=== PATIENT | female | born 1990 | race Caucasian/White ===

== ENCOUNTER 2020-05-01 10:57 | Emergency (ER) | payer OTHER, SELFPAY ==
--- NOTE | ~2020-05-01 | US_ITS ---
EXAMINATION: US venous doppler [facility] DATE: 05/01/2020 11:38 INDICATION: Left lower limb pain and swelling. TECHNIQUE: Grayscale ultrasound images without and with compression and Doppler ultrasound images of the left lower extremity veins were obtained. COMPARISON: Ultrasound 06/28/2019 FINDINGS: The visualized portions of left common femoral vein, profunda (deep) femoral vein, femoral vein, popl iteal vein, peroneal veins, posterior tibial veins, and greater saphenous vein outflow are patent. IMPRESSION: 1. No deep venous thrombosis. Reviewed, dictated and finalized at location B.
[2020-05-01 11:04] VITALS: BP 125/75; PULSE 88; RESP 18; TEMP 37.2; O2SAT 100
--- NOTE | 2020-05-01 11:20 | ED.LOWEXIN ---
HPI - Extremity Injury (Lower) General Chief Complaint: Extremity Injury, Lower <Lizabeth Daniel PA-C - Last Filed: 05/01/20 13:02> Stated Complaint: r/o dvt <GHASSAN Briggs Last Filed: 05/01/20 13:02> Time Seen by Provider: 05/01/20 11:10 <Lizabeth Daniel PA-C - Last Filed: 05/01/20 13:02> Source: patient <GHASSAN Briggs Last Filed: 05/01/20 13:02> Mode of arrival: ambulatory <GHASSAN Briggs Last Filed: 05/01/20 13:02> Limitations: no limitations <GHASSAN Briggs Last Filed: 05/01/20 13:02> History of Present Illness HPI Narrative: This is a 29-year-old female that presents the emergency department for left calf pain x1 week. No known injury or trauma. Also reports swelling to the lower extremity. Reports history of DVT so she was concerned she may have another one. Reports she is 13 weeks . Denies fever, chest pain, shortness of breath or erythema. <GHASSAN Briggs Last Filed: 05/01/20 13:02> Related Data Home Medications: Home Medications Medication Instructions Recorded Confirmed No Home Medications 05/01/20 05/01/20 <Lizabeth Daniel PA-C - Last Filed: 05/01/20 13:02> Allergies/Adverse Reactions: Allergies Allergy/AdvReac Type Severity Reaction Status Date / Time Sulfa (Sulfonamide Allergy Unknown HIVES Verified 05/01/20 11:06 Antibiotics) <GHASSAN Briggs Last Filed: 05/01/20 13:02> Review of Systems Review of Systems: Narrative: CONSTITUTIONAL: Denies fever CARDIOVASCULAR: Denies chest pain RESPIRATORY: Denies dyspnea. SKIN: Denies rash <GHASSAN Briggs Last Filed: 05/01/20 13:02> All systems reviewed & are unremarkable except as noted in HPI and below <GHASSAN Briggs Last Filed: 05/01/20 13:02> PMFSH Past Medical History Medical History: Medical History (Updated 05/01/20 @ 13:01 by Lizabeth Daniel PA-C) Asthma History of DVT (deep vein thrombosis) Hx of endometriosis Hx of multiple sclerosis <Lziabeth Daniel PA-C - Last Filed: 05/01/20 13:02> Social History Social History: Social History Gender identity (if verbalized by the patient): Female <Lizabeth Daniel PA-C - Last Filed: 05/01/20 13:02> Exam Narrative: Exam Narrative: GENERAL: Well-appearing, well-nourished, and in no acute distress. HEAD: Normocephalic, atraumatic. EYES: EOMI. CHEST: Clear to auscultation. No respiratory distress. No wheezes rales or rhonchi HEART: Regular rate and rhythm. No murmur heard. Normal peripheral pulses. EXTREMITIES: Normal range of motion. No edema or erythema. Normal DP pulses SKIN: Warm, dry, no rash. NEURO: No focal deficits. Alert and oriented x3. PSYCH: Normal mood and affect <Lizabeth Daniel PA-C - Last Filed: 05/01/20 13:02> Course Consultations Consultation #1: I spoke with her OB stone driller, Dr Mejia about work-up who will follow-up in clinic as scheduled. <Lizabeth Daniel PA-C - Last Filed: 05/01/20 13:02> Date: 05/01/20 <Lizabeth Daniel PA-C - Last Filed: 05/01/20 13:02> Time: 13:00 <iLzabeth Daniel PA-C - Last Filed: 05/01/20 13:02> Vital Signs Vital signs: Vital Signs Temperature 98.9 F 05/01/20 11:04 Pulse Rate 88 05/01/20 11:04 Respiratory Rate 18 05/01/20 11:04 Blood Pressure 125/75 05/01/20 11:04 Pulse Oximetry 100 05/01/20 11:04 Temperature 98.9 F 05/01/20 11:04 Pulse Rate 80 05/01/20 13:32 Respiratory Rate 20 05/01/20 13:32 Blood Pressure 118/74 05/01/20 13:32 Pulse Oximetry 98 05/01/20 13:32 <Lizabeth Daniel PA-C - Last Filed: 05/01/20 13:02> Vital Signs Temperature 98.9 F 05/01/20 11:04 Pulse Rate 88 05/01/20 11:04 Respiratory Rate 18 05/01/20 11:04 Blood Pressure 125/75 05/01/20 11:04 Pulse Oximetry 100 05/01/20 11:04 Temperature 98.9 F 05/01/20 11:04
[2020-05-01 12:07] LABS: Basophils Percent Auto 0.2 % (0.2-1.2); Eosinophils Absolute Auto 0.1 K/mm3 (0-0.3); Hematocrit 35.1 % (37.0-47.0); Hemoglobin 11.8 g/dL (12.0-15.0); Immature Granulocyte Absolute 0.05 K/mm3 (0.00-0.031); Immature Granulocyte Percent A 0.5 % (0-0.5); Lymphocytes Absolute Auto 1.21 K/mm3 (0.9-3.2); Lymphocytes Percent Auto 11.4 % (18.3-44.2); Mean Corpuscular HGB Conc 33.6 g/dl (32-36); Mean Corpuscular Hemoglobin 28.5 pg (26-34); Mean Corpuscular Volume 84.8 fl (80-100); Mean Platelet Volume 9.2 fl (7.4-10.4); Monocytes Absolute Auto 0.6 K/mm3 (0.1-0.6); Monocytes Percent Auto 5.7 % (2.6-8.5); Neutrophils Absolute Auto 8.6 K/mm3 (1.3-6.7); Neutrophils Percent Auto 81.2 % (45.5-73.1); Platelet Count Result 253 k/mm3 (150-375); Red Blood Count 4.14 M/mm3 (4.2-5.4); Red Cell Distribution Width 13.4 % (11.5-14.5); White Blood Count 10.6 K/mm3 (4.5-10.0)
[2020-05-01 12:16] LABS: Prothrombin Time 13.1 Seconds (11.1-14.7)
[2020-05-01 12:17] LABS: Partial Thromboplastin Time 22.8 SECONDS (22.3-36.8)
[2020-05-01 12:22] LABS: Potassium 3.9 mmol/L (3.4-5.0)
[2020-05-01 12:47] LABS: Anion Gap 6 mmol/L (8-16); Blood Urea Nitrogen 8 mg/dL (7-17); Calcium 8.9 mg/dL (8.4-10.2); Carbon Dioxide 28 mmol/L (22-30); Chloride 104 mmol/L (98-107); Estimated CRCL calculation 119 ml/min; Estimated Glomerular Filt Rate > 60; Glucose 94 mg/dL (65-105); Sodium 138 mmol/L (137-145)
[2020-05-01 13:32] VITALS: BP 118/74; PULSE 80; RESP 20; O2SAT 98
== END 2020-05-01 13:33 | disposition home or self-care (01) ==
PROVIDERS: Physician Assistant; Emergency Provider General Practice; PCP Family Medicine
DX: O26.891 Other specified pregnancy related conditions, first trimester (principal); M79.662 Pain in left lower leg; O99.511 Diseases of the respiratory system complicating pregnancy, first trimester; J45.909 Unspecified asthma, uncomplicated; Z86.718 Personal history of other venous thrombosis and embolism; O99.351 Diseases of the nervous system complicating pregnancy, first trimester; G35 Multiple sclerosis; O99.891 Other specified diseases and conditions complicating pregnancy; N80.9 Endometriosis, unspecified; Z3A.13 13 weeks gestation of pregnancy
CPT/HCPCS: 36415; 80048; 85025; 85610; 85730; 93971; 99284

== ENCOUNTER 2020-05-22 20:53 | Emergency (ER) | payer OTHER, SELFPAY ==
--- NOTE | ~2020-05-22 | XR_ITS ---
XR ankle RT min 3V 05/22/2020 21:33 INDICATION: Right ankle pain PROCEDURE: 4 views right ankle COMPARISON: No prior studies for comparison. FINDINGS: Fracture, dislocation or subluxation is not identified. The soft tissues appear within norm al limits. No foreign bodies are identified. IMPRESSION: 1: NO ACUTE BONE OR JOINT ABNORMALITY IDENTIFIED. Reviewed, dictated and finalized at location A.
[2020-05-22 20:58] VITALS: BP 123/79; PULSE 93; RESP 16; TEMP 36.2; O2SAT 100
--- NOTE | 2020-05-22 22:51 | ED.LOWEXIN ---
HPI - Extremity Injury (Lower) General Chief Complaint: Extremity Injury, Lower Stated Complaint: right foot injury Time Seen by Provider: 05/22/20 22:01 Source: patient Mode of arrival: ambulatory Limitations: no limitations History of Present Illness HPI Narrative: 30-year-old female Complains of twisting her right ankle while walking this evening Has pain making ambulation difficult, and mild lateral swelling She is and on daily Lovenox shots No other injuries, no cramping no spotting Related Data Home Medications Medication Instructions Recorded Confirmed No Home Medications 05/01/20 05/01/20 Allergies Allergy/AdvReac Type Severity Reaction Status Date / Time Sulfa (Sulfonamide Allergy Unknown HIVES Verified 05/01/20 11:06 Antibiotics) Review of Systems Genitourinary: Genitourinary: Denies abnormal vaginal bleeding Musculoskeletal: Musculoskeletal: Reports arthralgias and Reports joint swelling PMFSH Past Medical History Medical History (Updated 05/22/20 @ 23:00 by Koby Taylor MD) Asthma History of DVT (deep vein thrombosis) Hx of endometriosis Hx of multiple sclerosis Social History Social History Gender identity (if verbalized by the patient): Female Exam Const: General: no acute distress and alert Orientation/consciousness: patient oriented x3 Eyes: Conjunctivae: conjunctivae normal EOM: EOMs intact bilaterally Skin: General skin exam: normal color Neuro: General: patient oriented x3 Speech: normal speech Extrem: Other: Lateral tenderness and mild soft tissue swelling, no laxity, neurovascular intact Course Vital Signs Vital signs: Vital Signs Temperature 36.2 C L 05/22/20 20:58 Pulse Rate 93 05/22/20 20:58 Respiratory Rate 16 05/22/20 20:58 Blood Pressure 123/79 05/22/20 20:58 Pulse Oximetry 100 05/22/20 20:58 Temperature 36.2 C L 05/22/20 20:58 Pulse Rate 93 05/22/20 20:58 Respiratory Rate 16 05/22/20 20:58 Blood Pressure 123/79 05/22/20 20:58 Pulse Oximetry 100 05/22/20 20:58 Discharge Plan Discharge Clinical Impression: Ankle sprain and strain Patient Disposition: Home, Self-Care Condition: Stable Instructions: Ankle Sprain (ED), Ankle Stirrup Splint (ED), Crutch Instructions (ED) Additional Instructions: Tylenol for pain, elevate, ice, crutches can be borrowed from [facility] if needed Prescriptions: No Action No Home Medications RF: 0 Follow-up/Referrals: Jj Coats MD [Primary Care Provider] - (If needed)
[2020-05-23] VITALS: BP 134/86; PULSE 78; RESP 20; TEMP 36.4; O2SAT 100
== END 2020-05-22 23:50 | disposition home or self-care (01) ==
PROVIDERS: Emergency Provider Emergency Medicine; PCP Family Medicine
DX: O9A.212 Injury, poisoning and certain other consequences of external causes complicating pregnancy, second trimester (principal); S93.401A Sprain of unspecified ligament of right ankle, initial encounter; S96.911A Strain of unspecified muscle and tendon at ankle and foot level, right foot, initial encounter; O99.352 Diseases of the nervous system complicating pregnancy, second trimester; G35 Multiple sclerosis; O99.512 Diseases of the respiratory system complicating pregnancy, second trimester; J45.909 Unspecified asthma, uncomplicated; Z86.718 Personal history of other venous thrombosis and embolism; Z3A.16 16 weeks gestation of pregnancy; Z79.02 Long term (current) use of antithrombotics/antiplatelets; X50.1XXA Overexertion from prolonged static or awkward postures, initial encounter
CPT/HCPCS: 73610; 99283

== ENCOUNTER → 2020-09-15 12:28 | Outpatient (CLI) | payer OTHER, SELFPAY ==
--- NOTE | ~2020-09-15 | US_ITS ---
EXAMINATION: US OB follow up DATE: 09/15/2020 12:49 INDICATION: Small for gestational age. TECHNIQUE: Real-time ultrasound of the pelvis was performed. COMPARISON: None. FINDINGS: There is a single living fetus in vertex presentation. The placenta is posterior and fundal. h eart rate is 132 beats per minute (bpm). The amniotic fluid index is 20.8 cm, which is normal. The following biometric data were obtained: Biparietal diameter (BPD): 7.9 cm; head circumference (HC): 29.0 cm; abdominal circumference (AC): 27 .8 cm; femur length (FL): 5.8 cm. These measurements are concordant. Estimated weight is 1768 g +/- 265 g, which correlates with 6th percentile when 11/02/20 is used as estimated date of delivery. As single measurements, these parameters are each equal to the following estimated gestational ages w ith ranges of +/- 2 standard deviations: BPD: 31 weeks 6 days (28 weeks 6 days - 35 weeks 0 days). HC: 32 weeks 0 days (29 weeks 0 days - 35 weeks 0 days). AC: 31 weeks 6 days (28 weeks 6 days - 34 weeks 6 days). FL: 30 weeks 3 days (27 weeks 3 days - 33 weeks 3 days). estimated gestational age based solely on measurements from this exam is 31 weeks 4 days +/- 2 weeks 1 days. IMPRESSION: 1. Single living fetus in vertex presentation. 2. Small for gestational age. Estimated weight is 1768 g +/- 265 g, which correlates with 6th percentile when 11/02/20 is used as estimated date of delivery. Reviewed, dictated and finalized at location A. [facility] [employer] IMPRESSION: 1. Single living fetus in vertex presentation. 2. Small for gestational age. Estimated weight is 1768 g +/- 265 g, whic h correlates with 6th percentile when 11/02/20 is used as estimated date of deli very.
== END ==
PROVIDERS: Visit Provider Obstetrics & Gynecology
DX: Z36.9 Encounter for antenatal screening, unspecified (principal); Z3A.31 31 weeks gestation of pregnancy
CPT/HCPCS: 76816

== ENCOUNTER 2020-11-02 17:06 | Inpatient (IN) | payer OTHER, SELFPAY ==
[2020-11-02] VITALS (11 sets, daily range): BP systolic 91–104; BP diastolic 49–77; PULSE 81–108; RESP 18; TEMP 36.3–36.6; BMI 36.6
--- NOTE | 2020-11-02 17:06 | LDADM ---
This patient, Bushra Waite, was admitted to Labor/Delivery/Recovery 107 on 11/02/20 at 17:06. Plans for labor, pain management and were discussed with patient. Patient/family oriented to hospital policies and general routines including ID bracelet, bed and alarms, visiting hours, pain management, procedures, bathroom and other care routines, personal items, smoking policy, room service/diet and guest tray routines, security routines, and visiting hours. Patient/Family are encouraged to report perceived risks to care and to ask questions if they do not understand what they are told or what they should do. See OBIX for further documentation.
[2020-11-02 18:01] LABS: Basophils Percent Auto 0.2 % (0.2-1.2); Eosinophils Absolute Auto 0.1 K/mm3 (0-0.3); Eosinophils Percent Auto 0.5 % (0-4.4); Hematocrit 31.3 % (37.0-47.0); Hemoglobin 9.9 g/dL (12.0-15.0); Immature Granulocyte Absolute 0.06 K/mm3 (0.00-0.031); Immature Granulocyte Percent A 0.6 % (0-0.5); Lymphocytes Absolute Auto 1.29 K/mm3 (0.9-3.2); Lymphocytes Percent Auto 11.9 % (18.3-44.2); Mean Corpuscular HGB Conc 31.6 g/dl (32-36); Mean Corpuscular Hemoglobin 25.3 pg (26-34); Mean Corpuscular Volume 79.8 fl (80-100); Mean Platelet Volume 10.5 fl (7.4-10.4); Monocytes Absolute Auto 0.8 K/mm3 (0.1-0.6); Monocytes Percent Auto 6.9 % (2.6-8.5); Neutrophils Absolute Auto 8.7 K/mm3 (1.3-6.7); Neutrophils Percent Auto 79.9 % (45.5-73.1); Platelet Count Result 250 k/mm3 (150-375); Red Blood Count 3.92 M/mm3 (4.2-5.4); Red Cell Distribution Width 15.3 % (11.5-14.5); White Blood Count 10.9 K/mm3 (4.5-10.0)
[2020-11-02] MEDS: DINOPROSTONE 10 MG VAG INSERT VAGINAL (18:03)
[2020-11-02 18:52] LABS: HIV 1/2 Ab P24 Ag Result Negative (Negative)
[2020-11-02 19:25] LABS: INR 0.9; Prothrombin Time 13.1 Seconds (11.1-14.7)
[2020-11-02 19:26] LABS: Partial Thromboplastin Time 24.7 SECONDS (22.3-36.8)
[2020-11-03] VITALS (62 sets, daily range): BP systolic 41–122; BP diastolic 15–92; PULSE 64–204; RESP 16–18; TEMP 36.1–36.8; O2SAT 83–100
[2020-11-03] MEDS: LACTATED RINGERS 1,000 ML 125 ML IV CONT ×2 (05:12→07:16)
[2020-11-03] MEDS: OXYTOCIN 30 UNITS/NS 500 ML 30 UNITS/500 ML BAG IV CONT (05:13)
--- NOTE | 2020-11-03 06:44 | WPDANESEPPF ---
Anes - Initial Pre Proc Eval Procedure: labor epidural Date/Time: 11/03/20 06:44 Surgeon: Kervin Obrien MD Pre Op Diagnosis: labor pain Pre Op Diagnosis: Induction of Labor Patient Data Age: 30 Gender: F Height: 1.57 m Weight: 91 kg Last Vital Signs Temp 36.1 C L 11/03/20 04:01 Pulse 89 11/03/20 06:42 Resp 16 11/03/20 04:01 BP 110/71 11/03/20 06:42 Pulse Ox 99 11/03/20 06:43 Allergies Allergy/AdvReac Type Severity Reaction Status Date / Time Sulfa (Sulfonamide Allergy Unknown HIVES Verified 11/02/20 17:26 Antibiotics) Home Medications Medication Instructions Recorded Confirmed Type prenat.vits,jorge,[id number] 1 tablet PO DAILY 10/12/20 11/02/20 History [ #2] heparin (porcine) 10 unit SUBCUT BID 11/02/20 11/02/20 History Laboratory Tests 11/02/20 11/02/20 11/02/20 17:52 17:52 17:52 WBC 10.9 K/mm3 H K/mm3 (4.5-10.0) RBC 3.92 M/mm3 L M/mm3 (4.2-5.4) Hgb 9.9 g/dL L g/dL (12.0-15.0) Hct 31.3 % L % (37.0-47.0) MCV 79.8 fl L fl (80-100) MCH 25.3 pg L pg (26-34) MCHC 31.6 g/dl L g/dl (32-36) RDW 15.3 % H % (11.5-14.5) Plt Count 250 k/mm3 k/mm3 (150-375) MPV 10.5 fl H fl (7.4-10.4) Immature Gran % (Auto) 0.6 % H % (0-0.5) Neut % (Auto) 79.9 % H % (45.5-73.1) Lymph % (Auto) 11.9 % L % (18.3-44.2) Curry % (Auto) 6.9 % % (2.6-8.5) Eos % (Auto) 0.5 % % (0-4.4) Baso % (Auto) 0.2 % % (0.2-1.2) Lymph # (Auto) 1.29 K/mm3 K/mm3 (0.9-3.2) Curry # (Auto) 0.8 K/mm3 H K/mm3 (0.1-0.6) Eos # (Auto) 0.1 K/mm3 K/mm3 (0-0.3) Baso # (Auto) 0.0 K/mm3 K/mm3 (0.0-0.1) Abs Immat Gran (auto) 0.06 K/mm3 H K/mm3 (0.00-0.031) Absolute Neuts (auto) 8.7 K/mm3 H K/mm3 (1.3-6.7) Absolute Nucleated RBC 0.0 K/mm3 K/mm3 (0.0-0.012) Nucleated RBC % 0.0 % % (0.0-0.2) PT INR APTT RPR Pending HIV 1&2 Ab/P24 Ag 4thGn Negative (Negative) Blood Type Antibody Screen 11/02/20 11/02/20 17:52 19:00 WBC RBC Hgb Hct MCV MCH MCHC RDW Plt Count MPV Immature Gran % (Auto) Neut % (Auto) Lymph % (Auto) Curry % (Auto) Eos % (Auto) Baso % (Auto) Lymph # (Auto) Curry # (Auto) Eos # (Auto) Baso # (Auto) Abs Immat Gran (auto) Absolute Neuts (auto) Absolute Nucleated RBC Nucleated RBC % PT 13.1 Seconds Seconds (11.1-14.7) INR 0.9 APTT 24.7 SECONDS SECONDS (22.3-36.8) RPR HIV 1&2 Ab/P24 Ag 4thGn Blood Type B Positive Antibody Screen Negative Patient hx anesthesia problems: none Family hx anesthesia problems: none [facility] Past Medical History Medical History (Updated 05/24/20 @ 00:00 by Morgan Edward) Asthma History of DVT (deep vein thrombosis) Hx of endometriosis Hx of multiple sclerosis Family History Family History (Updated 10/12/20 @ 14:48 by Darlin Rizo RN) Mother Multiple sclerosis Grandparent Diabetes mellitus History of blood clots Social History Social History Smoking status: Never smoker Substance use: never Gender identity (if verbalized by the patient): Female Spiritual care concerns: No Anes - Eval Final PreProcedure Day of Procedure 11/03/20 06:44 Patient weight: obese ASA classification: III Anesthesia type and monitoring: regional epidural Informed Consent: The patient's anesthetic plan and its attendant risks and benefits were discussed with the pat
[2020-11-03 06:45] LABS: Rapid Plasma Reagin Non-Reactive (NonReactive)
--- NOTE | 2020-11-03 07:00 | WPDOBADMIT ---
Obstetrics - Admit Note Admission Note: record reviewed. Additions to the history and/or subsequent changes in the physical findings follow. 30 y/o at 39 3/7 weeks here for induction of labor. Has thrombophilia and has been on anticoagulation throughout . Switched from Lovenox to heparin at 36 weeks. Last dose the day prior to admission. Cervidil overnight, has been withdrawn and oxytocin has been begun. AVSS NST reactive TOCO: contractions every 2-3 min ABD soft, nontender, gravid, vertex Cervix 3 cm at time of Cervidil withdrawal. EXT nontender A: IUP at term, here for induction of labor. Thrombophilia. P: Oxytocin. Anticipate .
--- NOTE | 2020-11-03 07:50 | PM.OBPRVD ---
OB - Delivery Note Procedure Delivery date: 11/03/20 Procedure: Patient pushed for a spontaneous vaginal delivery. The fetus was delivered atraumatically and placed on the maternal abdomen. The cord was clamped and cut after 1 minute of life. The cord was double clamped and cut and a segment of cord was collected for cord gases. Cord blood was collected for blood type and Coomb's testing. The placenta delivered spontaneously and was noted to be intact. The perineum was inspected and there were no lacerations noted. The uterus was firm and good hemostasis was noted. The patient and fetus were stable in the delivery room. Intrapartal events: None Induction method: per cervidil protocol Delivery monitor: external FHT Route of delivery: Episiotomy description: None Laceration Description: None Specimen: No Quantitative Blood Loss (ml): 250 Disposition: floor () Complications: No immediate complications Baby Date of : 11/03/20 Time of : 07:42 Weeks of gestation at delivery: 39 Infant gender: Female Weight (pounds): 7 Weight (ounces): 5 presentation: vertex position: Right Occiput Anterior Placenta delivery description: Spontaneous cord vessel description: 3 Vessels score one minute: 9 score five minutes: 9
[2020-11-03] MEDS: OXYTOCIN 30 UNITS/NS 500 ML 30 UNITS/500 ML BAG 125 UNITS IV CONT (08:20)
[2020-11-03] MEDS: WITCH HAZEL 40 PADS 1 PAD TOPICAL (10:04)
[2020-11-03] MEDS: BENZOCAINE 20% AER SPR (*SP) 56 GM CAN 1 SPRAY TOPICAL (10:04)
[2020-11-03] MEDS: IBUPROFEN 600 MG TABLET PO ×2 (10:04→16:48)
[2020-11-03] MEDS: ONDANSETRON INJ 4 MG/2 ML VIAL IV PUSH (10:35)
--- NOTE | 2020-11-03 13:40 | PC.NURSE ---
Patient transferred to post room #278 per wheelchair from labor and delivery. Support person present. Oriented to unit, room, information board, rooming in, admission packet and security measures. Patient verbalizes understanding.
[2020-11-03] MEDS: POLYSACCHARIDE IRON COMPLEX 150 MG CAPSULE PO (16:48)
[2020-11-03] MEDS: DOCUSATE SODIUM 100 MG CAPSULE PO (16:48)
[2020-11-04] VITALS (7 sets, daily range): BP systolic 99–110; BP diastolic 63–74; PULSE 72–88; RESP 14–16; TEMP 36.3–36.6; O2SAT 94–100
[2020-11-04] MEDS: IBUPROFEN 600 MG TABLET PO ×2 (05:05→13:26)
[2020-11-04 05:46] LABS: Hematocrit 29.4 % (37.0-47.0); Hemoglobin 9.2 g/dL (12.0-15.0)
--- NOTE | 2020-11-04 06:35 | PC.NURSE ---
Pt to pre-op for tubal ligation. Infant in nursery, mother ok if is supplemented while she is away.
[2020-11-04] MEDS: LACTATED RINGERS 1,000 ML 30 ML IV CONT (06:45)
--- NOTE | 2020-11-04 06:46 | WPDANESEPPF ---
Anes - Initial Pre Proc Eval Procedure: Operation Date: 11/04/20 07:30 Proposed Procedures p Post- Tubal Ligation - Kervin Obrien MD Date/Time: 11/04/20 06:46 Surgeon: Kervin Obrien MD Pre Op Diagnosis: Induction of Labor Patient Data Age: 30 Gender: F Height: 5 ft 2 in Weight: 91 kg Last Vital Signs Temp 36.6 C 11/04/20 05:00 Pulse 72 11/04/20 05:00 Resp 16 11/04/20 05:00 BP 110/74 11/04/20 05:00 Pulse Ox 98 11/03/20 13:40 Allergies Allergy/AdvReac Type Severity Reaction Status Date / Time Sulfa (Sulfonamide Allergy Unknown HIVES Verified 11/02/20 17:26 Antibiotics) Home Medications Medication Instructions Recorded Confirmed Type prenat.vits,jorge,[id number] 1 tablet PO DAILY 10/12/20 11/02/20 History [ #2] heparin (porcine) 10 unit SUBCUT BID 11/02/20 11/02/20 History Laboratory Tests 11/04/20 05:15 Hgb 9.2 g/dL L g/dL (12.0-15.0) Hct 29.4 % L % (37.0-47.0) Patient hx anesthesia problems: none Family hx anesthesia problems: none PMFSH Past Medical History Medical History Asthma History of DVT (deep vein thrombosis) Hx of endometriosis Hx of multiple sclerosis Surgical History Surgical History (Updated 11/04/20 @ 06:47 by Nazario Roman MD) H/O laparoscopy Family History Family History Mother Multiple sclerosis Grandparent Diabetes mellitus History of blood clots Social History Social History Smoking status: Never smoker Substance use: never Gender identity (if verbalized by the patient): Female Spiritual care concerns: No Anes - Eval Final PreProcedure Day of Procedure 11/04/20 06:46 Patient weight: obese Heart: regular rate and rhythm Lungs: clear to auscultation Airway: Mallampati scale class II Neurological: alert and oriented Last oral intake: >/= 8 hours ASA classification: II Emergent: no Anesthetic plan: proceed Anesthesia type and monitoring: general ETT and standard monitoring Other findings: epidural catheter tip out of body when tape removed to examine Informed Consent: The patient's anesthetic plan and its attendant risks and benefits were discussed with the patient/family/POA. Questions were solicited and answers provided to the satisfaction of the patient/family/POA.
--- NOTE | 2020-11-04 07:28 | PM.OBPNVD ---
OB - PN: Subj Subjective Date/time seen: 11/04/20 07:28 Narrative: Pain OK. Would still like pp tubal ligation. Also hopes to go home today. OB - PN: Obj Data Labs CBC & Chem 7: 11/04/20 05:15 Labs: Laboratory Results - last 24 hr 11/04/20 05:15 Hgb 9.2 L Hct 29.4 L OB - PN A/P Plan Comments: A: PPD#1, doing well. Thrombophilia. Wants tubal ligation. P: She understands there are temporary methods of contraception available to her. She understands that there are nonsurgical options as well as surgical options. She understands that tubal ligation will render her permanently sterile. She understands that there is a failure rate associated with tubal ligation, as well as an inherent ectopic gestation risk. Furthermore, she understands risks of surgery to include risks of anesthesia, risks of pain, infection, bleeding, blood products, thromboembolic phenomena and damage to adjacent structures such as bowel, bladder, ureters, blood vessels and nerves. She understands all these risks and elects to proceed with surgery. She has received the [employer] pamphlet on surgical sterilization. Plan to send her home this afternoon to f/u with me 6 weeks. Resume Lovenox and continue for 6 weeks pp. Exam Psych: Other: AVSS ABD soft, nontender, fundus firm EXT nontender
--- NOTE | 2020-11-04 07:30 | WPDHPUPDATE1 ---
History and Physical Update Update Date/Time: 11/04/20 07:30 History and Physical has been reviewed, including an updated exam of the patient. There are NO changes in the patient's condition. Risks, benefits, and alternatives have been discussed and questions answered. Patient agrees to proceed with procedure.
--- NOTE | 2020-11-04 07:31 | PM.IMHP ---
H&P: HPI History of Present Illness Date/Time: 11/04/20 07:31 30 y/o who had a vaginal delivery yesterday morning. Desires permanent contraception. Also has a h/o DVT and has taken Lovenox throughout , transitioned to heparin in the last month of . Last dose of heparin was the day before induction of labor. Chief Complaint: Have tubes tied Review of Systems Review of Systems: All systems reviewed & are unremarkable except as noted in HPI and below PMFSH Past Medical History Medical History Asthma History of DVT (deep vein thrombosis) Hx of endometriosis Hx of multiple sclerosis Surgical History Surgical History H/O laparoscopy Family History Family History Mother Multiple sclerosis Grandparent Diabetes mellitus History of blood clots Social History Social History Smoking status: Never smoker Substance use: never Gender identity (if verbalized by the patient): Female Spiritual care concerns: No Meds Home Medications and Allergies Home Medications Medication Instructions Recorded Confirmed Type prenat.vits,jorge,[id number] 1 tablet PO DAILY 10/12/20 11/02/20 History [ #2] heparin (porcine) 10 unit SUBCUT BID 11/02/20 11/02/20 History Allergies Allergy/AdvReac Type Severity Reaction Status Date / Time Sulfa (Sulfonamide Allergy Unknown HIVES Verified 11/02/20 17:26 Antibiotics) Vital Signs Vital Signs - 24 hr 11/03/20 07:34 11/03/20 07:39 11/03/20 07:55 Temperature 36.6 C Pulse Rate Respiratory Rate Blood Pressure Pulse Oximetry 100 100 11/03/20 08:01 11/03/20 08:15 11/03/20 08:31 Temperature Pulse Rate 204 H 128 H 82 Respiratory Rate Blood Pressure 99/60 L 97/62 L 62/18 L Pulse Oximetry 11/03/20 08:36 11/03/20 08:45 11/03/20 09:00 Temperature Pulse Rate 70 72 64 Respiratory Rate Blood Pressure 99/67 L 95/53 L 103/63 Pulse Oximetry 11/03/20 09:15 11/03/20 09:30 11/03/20 09:45 Temperature Pulse Rate 66 85 68 Respiratory Rate Blood Pressure 103/68 92/72 L 114/73 Pulse Oximetry 11/03/20 10:00 11/03/20 13:40 11/03/20 16:45 Temperature 36.8 C 36.7 C Pulse Rate 72 66 78 Respiratory Rate 16 18 Blood Pressure 118/72 92/60 L 104/59 L Pulse Oximetry 98 11/03/20 20:00 11/04/20 05:00 Temperature 36.7 C 36.6 C Pulse Rate 108 H 72 Respiratory Rate 16 16 Blood Pressure 108/71 110/74 Pulse Oximetry Exam Const: Orientation/consciousness: patient oriented x3 Other: Well-developed, well-nourished female in no acute distress. Neck: Thyroid: thyroid normal Lymphatic: no lymphadenopathy noted (in neck, axilla or inguinal nodes) Resp: Effort & Inspection: normal respiratory effort Auscultation: clear to auscultation bilaterally Cardio: Rate: regular rate Rhythm: regular rhythm Heart sounds: S1 normal heart sound present and S2 normal heart sound present GI: Other: ABD: Soft, nontender, nondistended, fundus firm at umbilicus. No guarding or rebound tenderness. No hepatosplenomegaly. : General: Yes no CVA tenderness Other: Deferred. Back/Spine/Pelvis: Back: no CVA tenderness Skin: General skin exam: normal color and no rashes or lesions noted Neuro: General: patient oriented x3 Extrem: Other: Extremities: nontender with no edema Psych: Mental Status: mental status grossly normal Affect: normal affect H&P: Results Labs Labs: Short CBC 11/04/20 Range/Units 05:15 Hgb 9.2 L (12.0-15.0) g/dL Hct 29.4 L (37.0-47.0) % Assessment and Plan Assessment and plan (1) Unwanted fertility: Code(s): Z30.09 - Encounter for other general counseling and advice on contraception Status: Acute Additional Plan
--- NOTE | 2020-11-04 07:38 | PM.OBDSVD ---
DS: Admitting Diagnosis Admitting Diagnosis Admitting Diagnosis: IUP at 39 3/7 weeks Thrombophilia Desired sterility DS: Discharge Diagnosis Discharge Diagnosis (1) Unwanted fertility: Code(s): Z30.09 - Encounter for other general counseling and advice on contraception Status: Acute (2) (normal spontaneous vaginal delivery): Code(s): O80 - Encounter for full-term uncomplicated delivery Status: Acute (3) Thrombophilia: Code(s): D68.59 - Other primary thrombophilia Status: Acute OB - DS: Summary OB Procedures : None OB Procedures Intrapartum: Spontaneous Vag Delivery OB Procedures: : P.P. tubal ligation and Rubella lg Peripartum Data Procedures: Procedures Operation Date: 11/04/20 07:30 <No data on this case meets the specified criteria> Induction of labor with bilateral tubal ligation via modified [place] technique DS: Data Data Completed and Pending Labs on day of discharge: Labs from last 24 hours 11/04/20 05:15 Hgb 9.2 L Hct 29.4 L Discharge Plan Discharge Attending physician on discharge: Kervin Obrien Discharging Clinician: Kervin Obrien Patient Disposition: Home, Self-Care Activity: may shower, may drive after 2 weeks and pelvic rest Diet: regular Wound Care Instructions: incision open to air Discharge Instructions: Call or return if temperature above 100.4? F, increased abdominal pain, increased vaginal bleeding or any new problems. Education: Mom and Baby Guide and Preeclampsia Handout Given to: Mother Follow-Up: Call your delivering provider's office for an appointment to be seen in: 1 Week Mom and baby should come to the [facility] for the follow-up appointment. Appointment Date/Time: November 06, 2020 at 9:00 am What to expect at your follow-up visit: Physical Assessment Call [phone] if you are unable to keep your appointment time. BREAST CARE: * Wear a snug supportive bra. * For engorgement discomfort: Breast Feeding: * Apply warm moist washcloths * Express milk as needed to relieve engorgement * Wear loose clothing * For sore nipples: * Identify correct latch-on * Apply warm moist washcloths before and after nursing * Air dry nipples after nursing * May apply Lansinoh cream to nipples ABDOMINAL INCISION: (if applicable) * Allow incision to air dry * Do NOT use lotions for powders on your incision * When showering, allow soap and water to run over the incision, but do not wash incision EPISIOTOMY/PERINEAL CARE: * Until bleeding stops, use your jena bottle after urinating * Change your pad frequently throughout the day * You may take sitz baths several times a day (fill your bathtub with warm water and soak for 20 minutes.) Do NOT bathe in the water * No tub baths until seen by your physician - You may shower ACTIVITY: * Rest as much as possible. * Do not exercise or lift anything heavier than your baby (such as laundry or other children.) * Avoid stairs or driving as much as possible. * Do not put anything into the vagina. No douching, tampons, or sexual activity until seen by physician. NOTIFY PHYSICIAN IF YOU HAVE ANY QUESTIONS OR IF ANY OF THE FOLLOWING SYMPTOMS OCCUR: * If your incision becomes red, swollen, or more painful than what you have experienced in the hospital. * If your vaginal bleeding becomes foul smelling. * If your vaginal bleeding becomes more heavy than a period or if your bleeding changes from pink to bright red. However, you may pass an occasional walnut-sized clot once or twice for the first week . * If you experience a sharp, shooting pain in you calves. * If you discover a hard, reddened area on your breast or if you experience flu-like symptoms. DIET: * Eat regular, well-balanced meals. * Drink plenty of fluids daily. If breas
[2020-11-04] MEDS: LIDO 1%/EPINEPHRINE 1:100,000 50 ML VIAL 10 ML INFILTRATE (07:55)
--- NOTE | 2020-11-04 08:10 | P.OP_ITS ---
Procedure Note - Detailed Date of procedure: 11/04/20 Pre-op diagnosis: Induction of Labor Desired sterility Post-op diagnosis: same Procedure performed: bilateral tubal ligation via modified [place] technique Description of procedure: The patient was taken to the operating room where general endotracheal anesthesia was administered. She was prepared and draped in the usual sterile fashion in the dorsal supine position. Ten mL of 1% lidocaine was infiltrated along the planned incision site. An infraumbilical skin incision made with a scalpel. It was carried through to the underlying layer of the fascia. The fascia was incised in the midline. The incision was extended laterally. The peritoneum was identified, tented up and entered sharply and this incision was also extended laterally. The right fallopian tube was grasped with a [place] clamp. It was followed out to the fimbriated end for identification, then was regrasped in the midportion. A loop of tube was ligated with a free tie of 0 plain gut. The tubal segment was sharply transected and passed off to be sent to pathology. The left fallopian tube was similarly identified ligated and transected. Hemostasis was excellent. The fascial layer was reapproximated using 0 Vicryl in a running fashion. The skin incision was reapproximated using 4 0 Monocryl in running subcuticular fashion. Dermaflex was applied externally. Sponge, lap, needle and instrument counts were correct. The patient was awakened and taken to the recovery room in stable condition. I was present and scrubbed through the entire procedure. Implants: None Anesthesia: GETA and local (1% lidocaine) Surgeon: Kervin Obrien MD Estimated blood loss (mL): 5 Drains: No Packing: No Pathology: yes (segments of bilateral Fallopian tubes) Complications: None Condition: stable Disposition: PACU Findings: Normal-appearing Fallopian tubes
[2020-11-04] MEDS: HYDROmorphone HCL INJ (*CRX) 1 MG/ML SYR 0.5 MG IV PUSH ×2 (08:24→08:33)
[2020-11-04] MEDS: diphenhydrAMINE HCl INJ 50 MG/ML VIAL 25 MG IV PUSH (08:45)
--- NOTE | 2020-11-04 10:00 | PC.NURSE ---
Patient was given the opportunity to view the discharge video Mother & Baby Care, The First Two Weeks and to ask questions. Patient declined viewing the video and has been given the mother/baby guide for home reference.
--- NOTE | 2020-11-04 11:21 | PC.NURSE ---
Addendum entered by Carmen Houston RN 11/04/20 11:24: Pt returned at 0908. Original Note: Pt returned from PACU per stretcher.
[2020-11-04] MEDS: MEASLES,MUMPS,RUBELLA VACCINE 0.5 ML VIAL SUB-Q (12:33)
[2020-11-04] MEDS: TETANUS,DIPHTHERIA,AC PERTUSSIS ADULT (0.5 ML) BOOSTRIX IM (12:35)
[2020-11-04] MEDS: ENOXAPARIN 40 MG/0.4 ML SYRINGE SUB-Q (12:36)
[2020-11-06 09:30] VITALS: BP 109/66; PULSE 83; RESP 20; TEMP 37.1; O2SAT 100
== END 2020-11-04 14:08 | disposition home or self-care (01) | DRG 797 ==
LOC: ANHLDR 11-03 08:36 → ANHOB2 11-03 13:43
PROVIDERS: Student in an Organized Health Care Education/Training Program; Admitting Provider Obstetrics & Gynecology; PCP Family Medicine; Visit Provider Obstetrics & Gynecology
PROC: 0UL70ZZ Occlusion of Bilateral Fallopian Tubes, Open Approach (ICD-10-PCS; CPT 58605; principal; 2020-11-04 07:30)
DX: O99.12 Other diseases of the blood and blood-forming organs and certain disorders involving the immune mechanism complicating childbirth (principal); D68.59 Other primary thrombophilia; Z37.0 Single live birth; O99.354 Diseases of the nervous system complicating childbirth; Z3A.39 39 weeks gestation of pregnancy; O36.8330 Maternal care for abnormalities of the fetal heart rate or rhythm, third trimester, not applicable or unspecified; O62.3 Precipitate labor; O99.52 Diseases of the respiratory system complicating childbirth; J45.909 Unspecified asthma, uncomplicated; O99.214 Obesity complicating childbirth; E66.9 Obesity, unspecified; Z30.2 Encounter for sterilization; Z86.718 Personal history of other venous thrombosis and embolism; G35 Multiple sclerosis; O99.892 Other specified diseases and conditions complicating childbirth; N80.9 Endometriosis, unspecified
CPT/HCPCS: 36415; 85014; 85018; 85025; 85610; 85730; 86592; 86703; 86850; 86900; 86901; 88302; 90710; 90715; A9270; G0432; J1100; J1170; J1200; J1650; J1885; J2250; J2405; J2590; J2704; J2795; J3010; J7120

== ENCOUNTER → 2021-02-09 02:19 | Outpatient (CLI) | payer OTHER, SELFPAY ==
[2021-02-09 17:52] LABS: SARS-CoV-2 RNA PCR Negative
== END ==
PROVIDERS: PCP Family Medicine; Visit Provider Surgery
DX: Z01.812 Encounter for preprocedural laboratory examination (principal); Z20.822 Contact with and (suspected) exposure to COVID-19
CPT/HCPCS: C9803; U0003; U0005

== ENCOUNTER 2021-02-09 08:29 | Outpatient (CLI) | payer OTHER, SELFPAY ==
[2021-02-09 08:51] LABS: Basophils Percent Auto 0.4 % (0.2-1.2); Eosinophils Absolute Auto 0.2 K/mm3 (0-0.3); Eosinophils Percent Auto 2.5 % (0-4.4); Hemoglobin 11.9 g/dL (12.0-15.0); Immature Granulocyte Absolute 0.03 K/mm3 (0.00-0.031); Immature Granulocyte Percent A 0.4 % (0-0.5); Lymphocytes Absolute Auto 1.66 K/mm3 (0.9-3.2); Lymphocytes Percent Auto 24.4 % (18.3-44.2); Mean Corpuscular HGB Conc 30.5 g/dl (32-36); Mean Corpuscular Hemoglobin 25.8 pg (26-34); Mean Corpuscular Volume 84.6 fl (80-100); Mean Platelet Volume 9.8 fl (7.4-10.4); Monocytes Absolute Auto 0.5 K/mm3 (0.1-0.6); Monocytes Percent Auto 6.6 % (2.6-8.5); Neutrophils Absolute Auto 4.5 K/mm3 (1.3-6.7); Neutrophils Percent Auto 65.7 % (45.5-73.1); Platelet Count Result 247 k/mm3 (150-375); Red Blood Count 4.61 M/mm3 (4.2-5.4); Red Cell Distribution Width 15.1 % (11.5-14.5); White Blood Count 6.8 K/mm3 (4.5-10.0)
== END 2021-02-09 08:30 | disposition home or self-care (01) ==
LOC: ANHSURGERY 08:33
PROVIDERS: PCP Family Medicine; Visit Provider Surgery
DX: K43.2 Incisional hernia without obstruction or gangrene (principal)
CPT/HCPCS: 36415; 85025; 86850; 86900; 86901

== ENCOUNTER 2021-02-12 01:24 | Day surgery (SDC) | payer OTHER, SELFPAY ==
[2021-02-08 11:47] VITALS: BMI 34.7
[2021-02-12] VITALS (18 sets, daily range): BP systolic 90–118; BP diastolic 56–80; PULSE 60–74; RESP 12–20; TEMP 36.3–36.7; O2SAT 94–100
[2021-02-12] MEDS: ACETAMINOPHEN 500 MG TABLET 1000 MG PO (07:45)
--- NOTE | 2021-02-12 07:53 | WPDANESEPPF ---
Anes - Initial Pre Proc Eval Procedure: Operation Date: 02/12/21 08:30 Proposed Procedures p Laparoscopic Ventral Incisional Hernia Repair With Mesh - Ken Sosa MD Date/Time: 02/12/21 07:53 Surgeon: Ken Sosa MD Pre Op Diagnosis: periumbilical ventral incisional hernia Patient Data Age: 30 Gender: F Height: 1.57 m Weight: 86.18 kg Allergies Allergy/AdvReac Type Severity Reaction Status Date / Time Sulfa (Sulfonamide AdvReac Mild Rash Verified 02/08/21 11:24 Antibiotics) Home Medications Medication Instructions Recorded Confirmed Type No Home Medications 02/08/21 02/12/21 History Patient hx anesthesia problems: none Family hx anesthesia problems: none PMFSH Past Medical History Medical History Asthma History of DVT (deep vein thrombosis) Hx of endometriosis Hx of multiple sclerosis Surgical History Surgical History H/O laparoscopy Hx of tubal ligation Family History Family History Mother Multiple sclerosis Grandparent Diabetes mellitus History of blood clots Social History Social History Smoking status: Never smoker Second hand tobacco smoke exposure: No Alcohol intake: current Alcohol use details: 1 GLASS WINE/MONTH Substance use: never Living arrangements: with family Gender identity (if verbalized by the patient): Female Spiritual care concerns: No Anes - Eval Final PreProcedure Day of Procedure 02/12/21 07:53 Patient weight: obese Heart: regular rate and rhythm Lungs: clear to auscultation Airway: Mallampati scale class II Neurological: alert and oriented Last oral intake: >/= 8 hours ASA classification: II Emergent: no Anesthetic plan: proceed Anesthesia type and monitoring: general ETT and standard monitoring Informed Consent: The patient's anesthetic plan and its attendant risks and benefits were discussed with the patient/family/POA. Questions were solicited and answers provided to the satisfaction of the patient/family/POA.
[2021-02-12] MEDS: LACTATED RINGERS 1,000 ML 30 ML IV CONT ×2 (08:00→10:18)
[2021-02-12] MEDS: KETOROLAC 15 MG/ML VIAL (*BKC) IV PUSH ×2 (08:05→14:24)
--- NOTE | 2021-02-12 08:25 | WPDHPUPDATE1 ---
History and Physical Update Update Date/Time: 02/12/21 08:25 History and Physical has been reviewed, including an updated exam of the patient. There are NO changes in the patient's condition. Risks, benefits, and alternatives have been discussed and questions answered. Patient agrees to proceed with procedure.
[2021-02-12] MEDS: ceFAZolin 2 GM/D5W 50 ML 2 GM/50 ML BAG IVPB (08:31)
[2021-02-12] MEDS: BUPIVACAINE/EPINEPHRINE 0.5% 10 ML VIAL 50 ML INFILTRATE (09:45)
--- NOTE | 2021-02-12 10:13 | W.PM.PROC2 ---
Procedure Note - Detailed Date of Procedure 02/12/21 Pre-op Diagnosis periumbilical ventral incisional hernia Post-op Diagnosis same Procedure Performed Laparoscopic periumbilical ventral incisional hernia repair with mesh Surgeon Ken Sosa MD Account Support Manager Mary GARCIA, OR junior assistant manager Anesthesia general Indications patient has bulging underneath the scar just inferior to her umbilicus. This is giving her increasing pain with exercise and activity after her recent vaginal delivery. Findings Omentum incarcerated in a ventral incisional hernia directly inferior beneath the umbilicus. Approximate 2.5 cm defect was present. Description of Procedure DESCRIPTION OF PROCEDURE: The patient was placed in the supine position on the operative table and after induction of adequate general endotracheal anesthesia by Andrew Anesthesia, the entire abdomen was prepped and draped in usual sterile fashion and the head placed slightly up. An [place] drape was used to prevent contact of the mesh with the skin during this clean case. Following this, local anesthetic was placed and a spot selected about two fingerbreadths below the costal margin on the left and a small incision made after instilling local anesthetic using 0.25% Marcaine with epinephrine. Following this, a Veress needle technique using the water drop test was completed. Using 2 towel clips on the skin, I carefully elevated the skin and then passed the Veress needle into the abdomen and we could see that the saline dropped through the Veress needle easily. CO2 gas was connected and the abdomen was insufflated to 14 mm Hg pressure. Following this, the 0 degree 5 mm laparoscope was placed inside a 5 mm trocar, which was carefully twisted into the abdomen without difficulty, seeing a open pneumoperitoneum as we entered. Thus, the trocar was removed, the sleeve confirmed to be nicely within the abdomen, and we carefully inspected the anterior abdomen. Careful inspection of the abdomen revealed no inguinal hernias. A small defect in the area just below the umbilicus that was actually easy to see initially, but was entirely plugged with some omentum we could see up into a 25 mm defect that had been measured then with an instrument with a known cm marker. There was some omental incarceration of omentum and other adhesions to the underside of the edge of the defect. this was taken down with sharp and blunt dissection using laparoscopic scissors and a [place] connected to cautery. There was fat from the Omentum up into the area which was carefull dissected out and all bleeding controlled with cauter. . We had a little bleeding from this, and lost about 5 - 7 mL of blood. This was nicely cauterized and then moved out of the way. There was no significant preperitoneal fat in the way and no specimen was sent. A little bit of omental fat may have been left up in the hernia defect. There was no bleeding once the dissection was completed. Following this, we carefully planned by measuring the defect. Our mesh, a circular 11 cm piece of Venta-lite mesh was chosen, so that we would have 4.5 cm of overlap in all directions over the circular umbilical defect. Following this, the ventra-lite balloon hernia system mesh was rolled and this was inserted through the LLQ 12 mm port after rolling it to protect the absorbable covering on the downside of the mesh. A black silk suture was placed through the blue system a loop that is used to extract the tubing for the balloon positioning system such that I could grab this and pull it up through the umbilical area with the suture Passer. I used the suture passer after making a small opening with an 11 blade knife after placing local anesthetic directly in the center of the scar inferior to the umbilicus. The suture passer was used to grasp this centering silk stitch on the piece of mesh, and this was pulled up,centering it. Then I inflated the balloon system which brou
[2021-02-12] MEDS: fentaNYL CITRATE INJ (*CRX) 100 MCG/2 ML VIAL 25 MCG IV PUSH ×7 (10:28→13:58)
[2021-02-12] MEDS: ONDANSETRON INJ 4 MG/2 ML VIAL IV PUSH (10:30)
--- NOTE | 2021-02-12 10:54 | SUR.PHASEI ---
PT SLEEEPING, RESP EVEN UNLABORED. P,W,D.
--- NOTE | 2021-02-12 11:09 | SUR.PHASEI ---
1105; PT STATES NAUSEA RETURNED. HAVING DRY HEAVES. CALLED DR LUCERO, TELEPHONE ORDERS FOR BENADRYL AND SCOPE PATCH
[2021-02-12] MEDS: SCOPOLAMINE 1.5 MG PATCH TRANSDERM (11:13)
[2021-02-12] MEDS: diphenhydrAMINE HCl INJ 50 MG/ML VIAL 25 MG IV PUSH (11:13)
[2021-02-12] MEDS: oxyCODONE HCL (*CRX) 5 MG TAB IR PO (14:47)
== END 2021-02-12 16:00 | disposition home or self-care (01) ==
PROVIDERS: PCP Family Medicine; Visit Provider Surgery
PROC: (CPT 49654; principal; 2021-02-12 08:30)
DX: K43.2 Incisional hernia without obstruction or gangrene (principal); N80.9 Endometriosis, unspecified; J45.909 Unspecified asthma, uncomplicated; Z86.718 Personal history of other venous thrombosis and embolism; G35 Multiple sclerosis; E66.9 Obesity, unspecified; Z68.35 Body mass index [BMI] 35.0-35.9, adult
CPT/HCPCS: 49654; 36415; 85025; 86850; 86900; 86901; A9270; C1781; C9803; J0690; J1100; J1200; J1885; J2250; J2405; J2704; J2710; J3010; J7120; U0003; U0005

== ENCOUNTER 2021-10-11 15:00 | Outpatient (RCR) | payer OTHER, SELFPAY ==
--- NOTE | 2021-10-11 17:32 | PTOPEVAL ---
Thank you for referring Bushra Waite to [facility].? The patient is scheduled to be seen for therapy? __2__x/week for 8 visits. Please review, sign, date and return this plan of care TERESSA. I agree with and certify that the following plan of care is medically necessary. Referring Physician Date Admitting Provider: Attending Provider: NEETA SINHA Referring Provider: *PT Outpatient Evaluation Start: 10/11/21 14:57 Freq: Status: Active Protocol: Document 10/11/21 15:08 HERNANDO (Rec: 10/11/21 17:32 HERNANDO [email or web address]) Therapy Assessment Status Assessment Status Assessment Status Evaluation Outpatient Past Medical History Neurological History Hx Multiple Sclerosis Yes: DIAGNOSED 2012 Cardiovascular History Hx Deep Vein Thrombosis Yes: 06/2019 Respiratory History Hx Respiratory Disorders No Significant History Gastrointestinal History Hx Hernia Yes: VENTRAL HERNIA 10/2020 Genitourinary History Hx Genitourinary Disorders No Significant History Musculoskeletal History Hx Musculoskeletal Disorders No Significant History Hematological History Hx Hematological Disorders No Significant History Endocrine History Hx Endocrine Disorders No Significant History HEENT History Hx HEENT Disorders No Significant History Integumentary History Hx Skin Disorders No Significant History Reproductive History Hx Endometriosis Yes: LAPROSCOPY-2009 Hx Tubal Ligation Yes: 10/2020 Hx Other Reproductive Disorders Yes: VAGINAL DELIVERY 10/2020- BREAST FEEDING Psychosocial History Hx Psychiatric Disorders No Significant History Pain History History of Any Previous or Ongoing No Significant History Instance of Pain Anesthesia History Hx Anesthesia Reactions No Significant History Other History Hx Chemotherapy Yes: FOR MS X2 TREATMENT TIMES -LAST 09/2019 Evaluation Information Problem Diagnosis MS Onset 10/04/21 Subjective Information Pt. reports that she woke 10/04 Query Text:As Reported By Patient with severe weakness. She Family was diagnosed with relapsing/ remitting MS in 2012. Pt. recalls 5 relapses since her initial diagnosis. she reports that she was initially in a wc, but has been on steroids which have eased her symptoms to allow her to walk. She reports she is very unsteady. 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
== END 2021-10-13 09:36 | disposition home or self-care (01) ==
LOC: CHSPT 15:00
DX: G35 Multiple sclerosis (principal)
CPT/HCPCS: 97110; 97112; 97161